=== PATIENT | male | born 1960 | race American Indian/Alaskan Native ===

== ENCOUNTER 2017-05-30 11:24 | Day surgery (SDC) | payer OTHER ==
[2017-05-09 09:22] VITALS: BMI 28.5
[2017-05-30] MEDS ORDERED: Bupivacaine-Epi 0.25%-1:200,000 PF Inj ONE (13:54)
[2017-05-30] MEDS ORDERED: Midazolam 2 MG/2 ML VIAL ONE (13:54)
[2017-05-30] MEDS ORDERED: Propofol 10 mg/ml Inj (20 ML) ONE ×2 (13:55→15:42)
[2017-05-30] MEDS ORDERED: ceFAZolin IV 2 gm in Dextrose 1 GM/50 ML BAG IVPB ONE (13:55)
[2017-05-30] MEDS ORDERED: Lidocaine 1% Inj (20ml) ONE (13:55)
[2017-05-30] MEDS ORDERED: Rocuronium 10 mg/ml (5 ml) ONE (13:56)
[2017-05-30] MEDS ORDERED: Lidocaine 4% (Laryng-O-Jet) Kit MM ONE (13:57)
[2017-05-30] MEDS ORDERED: Lactated Ringer's 1,000 ML IV ONE ×2 (14:04→15:20)
[2017-05-30] MEDS ORDERED: Esmolol 100 mg/10ml Inj IV ONE (16:04)
--- NOTE | 2017-05-30 17:32 | PCM.SURG1 ---
Surgeon's Initial Post Op Note - Surgeon's Notes Surgeon: Dr. Acosta Bone Drier Operator: NEELIMA Mckinney; Dalila Blankenship, PGY2; Pre-Operative Diagnosis: Bilateraly inguinal hernias, umbilical hernia Operative Findings: see full operative report Post-Operative Diagnosis: Bilateral inguinal hernia, umbilical hernia, intra- peritoneal adhesions Operation Performed: robotic repair of right inguinal hernia with mesh, left inguinal hernia with mesh, and umbilical hernia with mesh, extensive lysis of adhesions Specimen/Specimens Removed: umbilical hernia tissue Estimated Blood Loss: EBL {In ML}: 10 Date of Surgery/Procedure: 05/30/17 Time of Surgery/Procedure: 14:00
[2017-05-30] MEDS ORDERED: Oxycodone/Acetaminophen 5/325 mg Tab PO PRN (17:33)
[2017-05-30] MEDS: HYDROmorphone 0.5 mg/0.5 ml ISec IVP PRN ×2 (18:17→18:33)
[2017-05-30 19:35] VITALS: BP 158/99; PULSE 88; RESP 22; TEMP 97.5; O2SAT 92
--- NOTE | 2017-06-01 21:04 | OP ---
PROCEDURE DATE: 05/30/2017 This operation was done in [facility]. PREOPERATIVE DIAGNOSES: 1. Right inguinal hernia. 2. Left inguinal hernia. 3. Umbilical hernia. POSTOPERATIVE DIAGNOSES: 1. Right inguinal hernia. 2. Left inguinal hernia. 3. Umbilical hernia. 4. 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 PROCEDURE: 1. Robotic right inguinal hernia repair with the mesh. 2. Robotic left inguinal hernia repair with the mesh. 3. Robotic umbilical hernia repair with the mesh, IPOM technique. 4. Robotic extensive lysis of adhesion of the lower abdominal wall as well as the pelvic adhesion. SURGEON: Horace Acosta MD. CHINESE HERBALIST: Janette Peguero. Janette was present from the beginning to end of the procedure. Helped in prepping and draping, placement of the robot docking and undocking of the robot and closure of the wound. TYPE OF ANESTHESIA: General endotracheal tube anesthesia. ESTIMATED BLOOD LOSS: Around 20 mL. DRAINS: None. PATHOLOGY: Umbilical hernia sac was sent to the pathology. There was no pathology from the inguinal hernia. INTRAOPERATIVE STEPS: The patient had a large bilateral direct inguinal hernia on the right side as well as on the left side and the patient also had a preperitoneal sac containing umbilical hernia and the patient also had an extensive adhesion due to the chronic scarring of the incarcerated left hernia and the sigmoid as well as the part of the colon was firmly adhered to the anterior abdominal wall as well as the pelvis. This 56-year-old male who was diagnosed with the bilateral inguinal hernia and the patient also had umbilical hernia. The patient was very symptomatic and the patient had a past medical history of CAD and cardiac catheterization and after cardiology and medical clearance, the patient was consented for robotic right as well as left inguinal hernia repair with the mesh as well as robotic umbilical hernia repair with the mesh. DESCRIPTION OF PROCEDURE: Brought to the OR, placed supine on the operating table. After induction of anesthesia, the abdomen was prepped and draped in a usual sterile fashion and a Juarez catheter was placed and supraumbilical incision was made through the umbilical hernia sac and another left upper quadrant incision was made and using the Visiport technique, the peritoneal cavity was entered and pneumoperitoneum was created and now through the umbilical incision, the 8 mm robotic port was placed, another two 8 mm of robotic port was placed in the upper abdomen. Robot was brought in, camera arm as well as arm I, arm II and arm III was docked and now the incarcerated left hernia as well as extensive adhesion of the sigmoid as well as the cecum to the anterior abdominal wall was completely excised and with the blunt and sharp dissection, extensive lysis of adhesion was done and after that the hernial defect was identified on both sides and now the incision was made from the left ASIS up to the right PSIS. The peritoneum was from the anterior abdominal wall and the dissection was carried down medially up to the pubic symphysis and in the space of Retzius and laterally to the lateral abdominal wall and first right-sided dissection was done and right-sided vas deferens as well as the right-sided spermatic cord vessels was identified and in the peritoneal sac was retracted back into the peritoneal cavity. The dissection was carried down up to the peritoneal reflection. The triangle of the doom as well as the triangle of the pain was identified and medially the space of Retzius as well as the retropubic dissection was done and now the left-sided dissection begin and the hernial sac was reduced back in to the peritoneal cavity and then laterally the peritoneal reflection was identified, the vas deferens as well as spermatic cord vessels was also identified on the left side and the dissection was carried down to identify the triangle of the Doom as well as the triangle of the pain. After proper dissection on the space of Retzius as well as the retropubic dissection was carried down up to the peritoneal reflections on both sides and now the left side mesh was placed. The mesh was implanted medially to the pubic symphysis, laterally to the lateral abdominal wall, inferiorly up to the peritoneal reflection and anteriorly up to the inferior epigastric artery. Now, the similar mesh was placed on the right side and the mesh was implanted medially to the pubic symphysis, laterally to the lateral abdominal wall, anteriorly to the inferior epigastric artery and inferiorly to the peritoneal reflection and after proper implantation of the mesh, the peritoneum was sutured with 2-0 V-Loc continuous suture and after that another 8 mm port was placed in the left lower quadrant and the robot was undocked and the left flank docking was done to fix the umbilical hernia and after re-docking the robot, the hook and the wrapper was introduced and the umbilical hernia sac was identified and the content was reduced back taking to the peritoneal cavity and the preperitoneal fat as well as the sac was dissected and it was sent off the table for the pathology and now the hernial defect was closed with #1 Prolene V-Loc suture in 2 layers and after that the 9 cm Symbotex mesh was introduced and the mesh was implanted with the tacker and at that time the robot was undocked and all the ports was taken off and the pneumoperitoneum was deflated. All the port sites were closed with the 4-0 Monocryl and dry sterile dressing was applied. The patient tolerated the procedure well. Count of the instrument was correct. There was no apparent complication. The patient was extubated to OR. Sent to the postanesthesia care unit in stable condition. Horace Acosta MD cc: [email or web address]
== END 2017-05-30 19:30 | disposition home or self-care (01) ==
LOC: C.SDS 11:24
PROVIDERS: ATTEND Surgery Surgical Critical Care
DX: K42.9 Umbilical hernia without obstruction or gangrene (principal); K40.30 Unilateral inguinal hernia, with obstruction, without gangrene, not specified as recurrent; K40.90 Unilateral inguinal hernia, without obstruction or gangrene, not specified as recurrent; K66.0 Peritoneal adhesions (postprocedural) (postinfection); I25.10 Atherosclerotic heart disease of native coronary artery without angina pectoris; I10 Essential (primary) hypertension; E78.5 Hyperlipidemia, unspecified; I48.91 Unspecified atrial fibrillation; I45.10 Unspecified right bundle-branch block; I45.81 Long QT syndrome; M10.9 Gout, unspecified; N40.0 Benign prostatic hyperplasia without lower urinary tract symptoms; Z98.890 Other specified postprocedural states; Z79.82 Long term (current) use of aspirin; Z79.899 Other long term (current) drug therapy